=== PATIENT | female | born 1985 | race Caucasian/White ===

== ENCOUNTER 2019-03-23 11:32 | Inpatient (IN) | payer BC ==
[~2019-03-23 11:32] MED LIST: Bupivacaine/Epinephrine 0.25% 30 ML VIAL ONE
[2019-03-23 12:14] VITALS: BMI 34.5
[2019-03-23] MEDS: Lactated Ringer's 1,000 ML IV SCH ×2 (12:20→18:56)
[2019-03-23] MEDS ORDERED: NS / Oxytocin 40 units/1000ml 1,000 ML IV PRN (12:35)
[2019-03-23] MEDS ORDERED: Butorphanol Tartrate 1 MG/ML VIAL SLOW IVP PRN (12:35)
[2019-03-23] MEDS ORDERED: hydrALAZINE 20 MG/ML VIAL SLOW IVP PRN (12:35)
[2019-03-23] MEDS ORDERED: Ondansetron PF 4 MG/2 ML Vial IVP PRN ×2 (12:35→23:06)
[2019-03-23] MEDS ORDERED: Docusate 100 MG CAP PO PRN (12:35)
[2019-03-23] MEDS ORDERED: Ibuprofen 800 MG TAB PO PRN (12:35)
[2019-03-23] MEDS ORDERED: Promethazine HCl 25 MG/ML VIAL IM PRN ×2 (12:35→23:06)
[2019-03-23] MEDS ORDERED: HYDROcodone/Acetaminophen 5/325 mg Tablet PO PRN ×2 (12:35)
[2019-03-23] MEDS ORDERED: Lidocaine 1% (PF) 30 ML VIAL SC PRN (12:35)
[2019-03-23 12:46] LABS: Hemoglobin 11.4 g/dL (12.0-16.0); Mean Corpuscular HGB CONC 34.8 g/dL (32.0-36.0); Mean Corpuscular Hemoglobin 30.9 pg (27.0-31.0); Mean Corpuscular Volume 88.7 fL (78.0-98.0); Mean Platelet Volume 8.1 fL (7.4-10.4); Platelet Count 170 thou/uL (130-400); RBC Distribution Width 12.3 % (11.5-14.5); White Blood Cell (WBC) Count 8.9 thou/uL (4.8-10.8)
[2019-03-23] MEDS: NS w/ Oxytocin 10 units 500 ML IV SCH (13:12)
[2019-03-23 13:30] LABS: Syphilis Antibody Nonreactive (Nonreactive)
[2019-03-23 13:33] LABS: HBSAg Index 0.29 S/CO (0-0.99); Hep B Surf Ag Non-Reactive S/CO (NonReactive)
[2019-03-23] MEDS ORDERED: Fentanyl 4 mcg/Bup 0.1% Cadd 100 ML ONE (22:15)
[2019-03-23] MEDS ORDERED: Lidocaine 1.5%/Epinephrine 1:200,000 5 ML AMPUL IJ ONE (22:30)
[2019-03-23] MEDS ORDERED: Fentanyl 100 MCG/2 ML VIAL ONE (22:30)
[2019-03-23] MEDS ORDERED: Naloxone HCl 0.4 mg/ml Vial IVP PRN ×2 (23:06)
[2019-03-23] MEDS ORDERED: ePHEDrine/0.9% NaCl/PF SYRINGE 50 mg/10 ml SLOW IVP PRN (23:06)
[2019-03-23] MEDS ORDERED: Acetaminophen 325 MG TAB PO PRN (23:06)
[2019-03-23] MEDS ORDERED: diphenhydrAMINE 50 MG/ML VIAL IVP PRN (23:06)
[2019-03-23] MEDS ORDERED: Lactated Ringer's 500 ML IV PRN (23:06)
[2019-03-23] MEDS ORDERED: Fentanyl 4 mcg/Bupivacaine 0.1% Cassette 100 ML EPIDURAL SCH (23:15)
[2019-03-23] MEDS ORDERED: Communication Order-Pharmacy FS SCH (23:15)
[2019-03-24] MEDS: NS w/ Oxytocin 10 units 500 ML IV SCH (01:00)
[2019-03-24] MEDS ORDERED: Bicitra 30 ML UDCUP ONE (02:50)
[2019-03-24] MEDS ORDERED: Azithromycin 500 MG VIAL ONE (02:50)
[2019-03-24] MEDS ORDERED: MORPHINE 5 MG/10 ML PF VIAL ONE (03:03)
[2019-03-24] MEDS ORDERED: Oxytocin 10 UNITS/ML VIAL ONE (03:04)
[2019-03-24] MEDS ORDERED: Ondansetron PF 4 MG/2 ML Vial ONE (03:04)
[2019-03-24] MEDS ORDERED: ePHEDrine/0.9% NaCl/PF SYRINGE 50 mg/10 ml ONE (03:04)
[2019-03-24] MEDS ORDERED: Ketorolac Tromethamine 30 MG/ML VIAL ONE (03:04)
[2019-03-24] MEDS ORDERED: Dexamethasone 4 mg/ml Vial ONE (03:04)
[2019-03-24] MEDS ORDERED: Phenylephrine HCL 10 MG/ML VIAL ONE (03:04)
[2019-03-24] MEDS ORDERED: diphenhydrAMINE 50 MG/ML VIAL IVP PRN (03:37)
[2019-03-24] MEDS ORDERED: Naloxone HCl 0.4 mg/ml Vial IV PRN (03:37)
[2019-03-24] MEDS ORDERED: Promethazine HCl 25 MG/ML VIAL IM PRN (03:37)
[2019-03-24] MEDS ORDERED: Naloxone HCl 0.4 mg/ml Vial IVP PRN ×2 (03:37)
[2019-03-24] MEDS ORDERED: Meperidine HCl/PF 25 MG/ML VIAL SLOW IVP PRN (03:37)
[2019-03-24] MEDS ORDERED: Ondansetron PF 4 MG/2 ML Vial IVP PRN ×2 (03:37→04:54)
[2019-03-24] MEDS ORDERED: L&D-Morphine 4 MG/ML VIAL SLOW IVP PRN (03:37)
[2019-03-24] MEDS ORDERED: Ondansetron HCl/PF 4 MG/2 ML Vial IVP PRN (03:37)
[2019-03-24] MEDS ORDERED: Ketorolac Tromethamine 30 MG/ML VIAL IVP PRN (03:37)
[2019-03-24] MEDS ORDERED: HYDROmorphone 2 MG/ML VIAL SLOW IVP PRN (03:37)
[2019-03-24] MEDS ORDERED: Promethazine HCl 25 MG SUPP PR PRN (03:37)
[2019-03-24] MEDS ORDERED: Ketorolac Tromethamine 30 MG/ML VIAL IVP SCH (03:45)
[2019-03-24] MEDS ORDERED: Communication Order-Pharmacy FS SCH (03:45)
[2019-03-24] MEDS ORDERED: Lanolin Ointment 7 GM TUBE TOP PRN (04:54)
[2019-03-24] MEDS ORDERED: Simethicone Chewable 80 MG TAB PO PRN ×2 (04:54→12:26)
[2019-03-24] MEDS ORDERED: Zolpidem Tartrate 5 MG TAB PO PRN (04:54)
[2019-03-24] MEDS ORDERED: Adacel (T-DAP) 0.5 ML SYRINGE IM ONE (04:54)
[2019-03-24] MEDS ORDERED: hydrALAZINE 20 MG/ML VIAL SLOW IVP PRN (04:54)
[2019-03-24] MEDS ORDERED: HYDROcodone/Acetaminophen 5/325 mg Tablet PO PRN ×2 (04:54)
--- NOTE | 2019-03-24 06:14 | OP ---
DATE OF PROCEDURE: 03/24/2019 PREOPERATIVE DIAGNOSES: 1. A 33-year-old female, G2, P0-0-1-0, at 38 and 6 weeks with spontaneous rupture of membranes. 2. GBS negative. 3. Induction of labor with Pitocin. 4. Anemia of . POSTOPERATIVE DIAGNOSES: 1. A 33-year-old female, G2, P0-0-1-0, at 38 and 6 weeks with spontaneous rupture of membranes. 2. GBS negative. 3. Induction of labor with Pitocin. 4. Anemia of . 5. Category 2 tracing with repetitive prolonged deceleration. 6. Progression to operative delivery by low transverse section. 7. Live-born female weighing 6 pounds 0 ounces with Apgars of 8 and 9 at 1 and 5 minutes respectively. SURGEON: Dr. Nereida Viveros EDGE POLISHER: Dr. Kimber Posada. ANESTHESIA: Epidural. ESTIMATED BLOOD LOSS: 350. QUANTITATIVE BLOOD LOSS: 487. SPECIAL MEDICATIONS: Ancef 2 g on-call to the OR. CLINICAL HISTORY: This patient is a 33-year-old, G2, P0-0-1-0, who presented to the office today for her routine OB visit. She was evaluated and checked, and noted to be 1.5 cm and about 70% effaced with little bloody show. The patient left the office and then subsequently had a rupture of membranes with clear fluid. She was sent to labor and delivery for admission and Pitocin augmentation. She had a category 1 tracing upon admission and Pitocin was initiated. She did get into a regular contraction pattern, however, did not progress appropriately. An IUPC was placed and noted adequate contractions. The patient did make some cervical advancement and requested an epidural for maternal analgesia. The patient then arrested at 4 cm and began to have prolonged decelerations. The Pitocin was turned off and the decision was made for proceeding with a primary low transverse section. The risks, benefits, possible complications, and alternatives were discussed with the patient and the patient wished to proceed. DETAILS OF PROCEDURE: The patient is taken to the operating room, where the epidural was redosed and she was laid in the supine position with a leftward tilt. She was prepped and draped in the usual sterile fashion and an incision was made in the Pfannenstiel manner after testing for adequate anesthesia. The incision was then carried down to the fascia. The fascia was nicked in the midline and extended out bilaterally. The Naveen clamps were used x2 to elevate the rectus muscles off the superior edge of the fascia. In similar fashion, the posterior border of the fascia was released from the rectus and pyramidalis muscles. The muscles were then in the midline and the peritoneum was breached and extended with a combination of sharp and blunt dissection. A bladder blade was placed. The bladder flap was created. The incision on the uterus was then performed down to the amnion. Clear fluid was noted. The incision was then extended bilaterally with traction and the 's head was delivered through the incision. The anterior shoulder was delivered and it was noted that there was a cord over the shoulder. This was easily reduced and the was then delivered through the remainder of the incision with a vigorous spontaneous cry. The cord was doubly clamped and cut and the was handed over to the neonatology nurses in attendance to the delivery. The cord blood was obtained with inadequate sample for a cord gas. The placenta was then delivered manually intact with a 3-vessel cord and was discarded. The uterus was then exteriorized and cleansed of all debris and the incision was closed in a running locking fashion with excellent hemostasis. A 2nd imbricating suture was placed and the bladder flap was then closed in a running fashion. The abdomen was cleansed of all debris and the incision was covered with Seprafilm. The uterus was then placed back inside the abdomen and the peritoneum was closed in a running fashion. The rectus muscles were then reapproximated with [id number] sutures with excellent hemostasis. The fascia was then closed in a running fashion and the subcutaneous tissues were irrigated and Bovie cautery was used to correct any bleeding. Several interrupted sutures with the 2-0 plain gut were used to reapproximate the tissue and then a 3-0 Heath needle Vicryl was used to close the skin. The skin was then reinforced with Steri-Strips and Mastisol and a pressure dressing with a Tegaderm and Telfa pads was placed. The patient tolerated the procedure well. She was transferred to the [facility] after all needle, sponge, lap, and instrument counts were correct x2 and transferred to the recovery area to continue to saravia with her . The was a live-born female, again weighing 6 pounds 0 ounces with Apgars of 8 and 9 at 1 and 5 minutes respectively. There were no other issues surrounding this delivery. Job ID: [id number] MTDD
[2019-03-24] MEDS: Lactated Ringer's 1,000 ML IV SCH ×2 (07:40→12:07)
[2019-03-24] MEDS: Ibuprofen 800 MG TAB PO SCH ×3 (07:40→21:23)
--- NOTE | 2019-03-24 10:47 | OP ---
DATE OF PROCEDURE: 03/24/2019 ADDENDUM: I was present and scrubbed to assist the uncomplicated primary low-transverse with Dr. Nereida Viveros. Please see her note for full details. Job ID: [id number]
[2019-03-24] MEDS: Prenatal Vitamin 1 TAB PO SCH (11:41)
[2019-03-25] MEDS: Lactated Ringer's 1,000 ML IV SCH ×4 (02:56→22:07)
[2019-03-25] MEDS: Ibuprofen 800 MG TAB PO SCH ×3 (04:02→22:07)
[2019-03-25 06:16] LABS: Hemoglobin 8.4 g/dL (12.0-16.0); Mean Corpuscular HGB CONC 33.4 g/dL (32.0-36.0); Mean Corpuscular Hemoglobin 29.9 pg (27.0-31.0); Mean Corpuscular Volume 89.4 fL (78.0-98.0); Mean Platelet Volume 7.6 fL (7.4-10.4); Platelet Count 125 thou/uL (130-400); RBC Distribution Width 12.3 % (11.5-14.5); White Blood Cell (WBC) Count 12.2 thou/uL (4.8-10.8)
[2019-03-25] MEDS: Prenatal Vitamin 1 TAB PO SCH (09:51)
[2019-03-26] MEDS: Lactated Ringer's 1,000 ML IV SCH ×2 (00:28→14:14)
[2019-03-26] MEDS: Ibuprofen 800 MG TAB PO SCH ×2 (05:30→14:15)
[2019-03-26] MEDS: Prenatal Vitamin 1 TAB PO SCH (09:45)
[2019-03-26 11:41] VITALS: BP 128/80; TEMP 98.6
== END 2019-03-26 14:50 | disposition home or self-care (01) | DRG 788 ==
LOC: L&D/OP 11:32 → L&D 12:34 → 3SW 03-24 06:46
PROVIDERS: ADMIT Obstetrics & Gynecology; ATTEND Obstetrics & Gynecology
PROC: 3E033VJ Introduction of Other Hormone into Peripheral Vein, Percutaneous Approach (ICD-10-PCS; principal; 2019-03-24)
PROC: 10D00Z1 Extraction of Products of Conception, Low, Open Approach (ICD-10-PCS; 2019-03-24)
DX: O42.92 Full-term premature rupture of membranes, unspecified as to length of time between rupture and onset of labor (principal); O76 Abnormality in fetal heart rate and rhythm complicating labor and delivery; O33.9 Maternal care for disproportion, unspecified; O32.4XX0 Maternal care for high head at term, not applicable or unspecified; O99.02 Anemia complicating childbirth; D64.9 Anemia, unspecified; O62.0 Primary inadequate contractions; Z3A.38 38 weeks gestation of pregnancy; O61.0 Failed medical induction of labor; Z37.0 Single live birth
CPT/HCPCS: 36415; 51702; 85027; 86780; 86850; 86900; 86901; 87340; 99285; J0456; J0690; J1100; J1200; J1885; J2274; J2370; J2405; J2590; J3010; J3490